=== PATIENT | male | born 1960 | race Caucasian/White ===

== ENCOUNTER 2024-02-15 08:36 | Outpatient (REF) | payer OTHER, SELFPAY ==
--- NOTE | ~2024-02-15 | XR_ITS ---
EXAMINATION: XR KNEE LEFT CLINICAL INFORMATION: Pain in left knee M25.562. COMPARISON: None available TECHNIQUE: Three views of the left knee. FINDINGS: No fracture or dislocation. There is moderate tricompartmental degenerative change with joint space narrowing and bulky osteophyte formation greatest in the medial compartment and patellofemoral compartment. No significant joint effusion. XR/XR knee LT 3V IMPRESSION: Moderate to severe tricompartmental degenerative change in the left knee. Electronically signed by: Yordan Chan MD 03/18/2024 09:59 AM AJITH
== END 2024-02-15 08:37 | disposition home or self-care (01) ==
LOC: HO.HOSX 08:36
PROVIDERS: Visit Provider Physician Assistant
DX: M25.562 Pain in left knee (principal); M25.561 Pain in right knee
CPT/HCPCS: 73560; 73562

== ENCOUNTER 2024-02-15 09:56 | Outpatient (AMB) | payer OTHER, SELFPAY ==
--- NOTE | 2024-02-15 10:03 | A.OFFVIS_ITS ---
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 Patient reports his pain presented about 9-10 years of after he had jumped on an inflation jumping pad. He was previously told that he would need surgery in the future. Currently he has constant mild pain with activity such as stair use and bending his knee. His pain is located at the anterior aspect of knee, stating below his knee cap. Denies numbness or tingling. He states his pain is very tolerable and does not need OTC pain reliever however he does use prior to hiking. 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 He states the pain has been present for about the last 10 years. He states about 10 years ago when he was juping onto an inflation pillow he lande on his feet. Shortly after he noticed he could not run, he felt pain in the left knee. He was after that, he would need surgery. States he cannot run at all due to that. He states he has more pain with down stairs. He denies instability. He states he is active, he hikes a lot in the summer. He states he does have to take Ibu. He does ride his mountain bike. 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 Mild tenderness along the medial joint line. ROM full with crepitus. Negative steinmans. Mild laxity with varus stress testing. NVI. Results Reviewed Results Reviewed: X-rays of the left knee obtained in the office today show significant degenerative arthritis with osteophyte formation. Assessment & Plan Assessment & Plan (1) Osteoarthritis of left knee: Code(s): M17.12 - Unilateral primary osteoarthritis, left knee Category: Medical Qualifiers: Osteoarthritis type: primary Qualified Code(s): M17.12 - Unilateral primary osteoarthritis, left knee (2) Varus deformity, not elsewhere classified, left knee: Code(s): M21.162 - Varus deformity, not elsewhere classified, left knee Category: Medical Plan We discussed options today which include steroid injections physical therapy and bracing. Is quite active and does not have significant limitations with daily activities therefore we will continue with a conservative approach. I did place an order for physical therapy and put an order in for a medial archives specialist brace. Like to get through the winter and see how he does and really evaluate how limited he is with activities. If he does get to a point where he is unable to participate in activities such as hiking, skiing or bike riding and is limited with walking long distances can contact our office to meet with Dr. Cardoza to discuss total knee arthroplasty. Orders: Orders XR knee LT 3V Today M25.562 - Pain in left knee XR knee RT 1V Today M25.561 - Pain in right knee PT Evaluation and Treatment Today M17.12 - Unilateral primary osteoarthritis, left knee Medications: New [Medial Auctioneer Tobacco Knee brace] n/a 1 ea 0RF M17.12 - Unilateral primary osteoarthritis, left knee, M21.162 - Varus deformity, not elsewhere classified, left knee [Medial Auctioneer Tobacco Knee brace] n/a 1 ea 0RF M17.12 - Unilateral primary osteoarthritis, left knee, M21.162 - Varus deformity, not elsewhere classified, left knee Coding Level of Care Code Est Pt Level 4 (71651) Complex EM visit Add On G2211 Diagnoses Primary osteoarthritis of left knee M17.12 Osteoarthritis type: primary Varus deformity, not elsewhere classified, left knee M21.162
[2024-02-15 10:10] VITALS: BMI 36.6
== END 2024-02-15 10:49 | disposition home or self-care (01) ==
PROVIDERS: PCP Registered Nurse; Visit Provider Physician Assistant
DX: M17.12 Unilateral primary osteoarthritis, left knee (principal); M21.162 Varus deformity, not elsewhere classified, left knee
CPT/HCPCS: 99214

== ENCOUNTER 2024-02-19 12:50 | Outpatient (REF) | payer OTHER, SELFPAY ==
--- NOTE | 2024-02-19 16:39 | MHC.AU.HA1 ---
Hearing Aid Evaluation Date of Visit: 02/19/24 Historical Information: Description of Hearing: Borderline normal gradually sloping to moderately severe sensorineural hearing loss, bilateral. Current personal amplification information, if applicable: None. Summary: Amplification recommended to facilitate improved communication. Reviewed options, performance levels, costs. Recommended RITE style. Selected rechargeable option. Selected Ultra performance level. Pt. is not concerned about phone connectivity. [employer] employee. Hearing Aid Prescription: Based on the individual?s shared listening needs, communication environments, dexterity, desire for connectivity, and personal preferences, the following prescription for amplification has been made: Right ear: Make, Model, Color: Oticon Intent 1 R steel diez Battery Size: Rechargeable Store Clerk Cashier/Slim Tube: 2/85 Type of Earmold/Dome/CShell/SlimTip: 8mm dbl braswell Left ear: Make, Model, Color: Oticon Intent 1 R steel diez Battery Size: Rechargeable Store Clerk Cashier/Slim Tube: 2/85 Type of Earmold/Dome/CShell/SlimTip: 8mm dbl braswell Plan of Care: Patient wishes to purchase hearing aids as prescribed Action Taken/Action Needed: Medical Clearance to be requested from PCP/ENT Hearing Instrument Fitting to be scheduled when materials arrive Primary Diagnosis: H90.3 Bilateral Sensorineural Hearing Loss Signature: Provider: Renaldo Arnold, [facility]
== END 2024-02-19 12:51 | disposition home or self-care (01) ==
LOC: HO.SH 12:50
PROVIDERS: Visit Provider Nurse Practitioner Family
DX: Z01.118 Encounter for examination of ears and hearing with other abnormal findings (principal); H90.3 Sensorineural hearing loss, bilateral
CPT/HCPCS: 92557; 92567

== ENCOUNTER 2024-04-04 10:31 | Outpatient (REF) | payer SELFPAY ==
--- NOTE | ~2024-04-04 | XR_ITS ---
EXAMINATION: XR HAND 3 OR MORE VIEWS RIGHT HISTORY: M79.641 - Pain in right hand COMPARISON: There are no prior studies available for comparison. FINDINGS: Three views of the right hand are submitted. Osseous mineralization is normal. There is no fracture or dislocation. There is moderate osteoarthritis of the 1st carpometacarpal joint, with joint space narrowing. There is mild joint space narrowing involving the DIP joints. The soft tissues are unremarkable. XR/XR hand RT min 3V IMPRESSION: Osteoarthritis of the right hand as described. Electronically signed by: Yordan Blandon MD 04/08/2024 09:43 AM EST
--- OUTSIDE RECORDS SUMMARY | 2024-04-04 10:46 | XMS_ITS ---
Author Organization [facility] Address [address] [place] [address] Care Team Providers Care Memory Care Director Name Role Phone LIZETTE WEST Primary Care Provider Unavail able Yordan Jimenez Unavailable [phone] REASON FOR VISIT patient not calling me back Encounters Encounter Location Date Provider Diagnosis [facility] [address] [place] [address] [address] [place] [address] 11/01/2023 Yordan Jimenez PLAN OF TREATMENT Next Appt Details Provider Name:Yordan Jimenez , 04/22/2024 11:10:00 AM, [address] [place] [address], [address], [place], [address],
--- OUTSIDE RECORDS SUMMARY | 2024-04-04 10:46 | XMS_ITS | Patient Health Record ---
Author Organization [facility] Address [address] [place] [address] Care Team Providers Care Metal Sheet Roller Operator Name Role Phone BETTYKENYETTA LIZETTE Primary Care Provider Unavail able Yordan Jimenez Unavailable [phone] REASON FOR REFERRAL No Information SOCIAL HISTORY Sex Assigned At : Social History Observation Description Sex Assigned At Unknown Encounters Encounter Location Date Provider Diagnosis [facility] [address] [place] [address] 11/01/2023 Yordan Jimenez PLAN OF TREATMENT Next Appt Details Provider Name:Yordan Jimenez , 04/22/2024 11:10:00 AM, [address] [place] [address], [address], [place], [address], Insurance Providers Payer Name Payer Address Payer Phone Subscriber Number Group Number Insured Name Patient Relationship to Insured Coverage Start Date Coverage End Date [employer] [address] [address] [place] [address] [id number] FRANCIS MONTERO Self - patient is the insured
== END 2024-04-04 10:32 | disposition home or self-care (01) ==
LOC: HO.HOSX 10:31
DX: M79.641 Pain in right hand (principal); M65.331 Trigger finger, right middle finger; Z86.14 Personal history of Methicillin resistant Staphylococcus aureus infection
CPT/HCPCS: 20550; 73130; J1100; J2003

== ENCOUNTER 2024-04-04 13:52 | Outpatient (AMB) | payer OTHER, SELFPAY ==
[2024-04-04 13:59] VITALS: BMI 36.6
--- NOTE | 2024-04-04 13:59 | A.OFFVIS_ITS ---
Vital Signs 04/04/24 13:59 Height 6 ft Weight 270 lb BMI 36.6 Intake Visit Reasons: new prob - Right hand pain Intake Note: Jesus 63 yr old right hand dominant male presents today for a new patient visit for her right hand pain. States approx around 2023 his cat scratch him. 1 month later his finger felt weird and felt as if he has a mass around his finger. Seen at urgent care where he was RX ABX. States it helped somewhat however he is still experiencing pain. States at times it locks and has radiating pain from his DIP to MCP and into his palm. He is not able to make a full close fist. Denies numbness or tingling in the right upper extremity. No other acute complaints or concerns at this time. Allergies amoxicillin [From Augmentin] Allergy (Severe, Unverified 04/04/24 14:13) ANAPHYLAXIS Penicillins Allergy (Verified 04/04/24 14:13) Unknown From Augmentin Allergy (Severe, Uncoded 04/04/24 14:13) ANAPHYLAXIS HPI HPI new prob - Right hand pain: Details: Jesus 63 yr old left hand dominant female presents today for a new patient visit for her right hand pain. States approx around 2023 his cat scratch him. 1 month later his finger felt weird and felt as if he has a mass around his finger. Seen at urgent care where he was RX ABX. States it helped somewhat however he is still experiencing pain. States at times it locks and has radiating pain from his DIP to MCP and into his palm. He is not able to make a full close fist. Hx of MRSA. 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 Neuro: Normal sensation of the tips of all digits of the right hand at this time Vascular: Cap refill brisk Pain: Tenderness to palpation at the level of the A1 niecy of the right middle finger Pain associated with visible and palpable locking and catching ROM: There is a visible and palpable locking and catching of the right middle finger went in a flexed position Patient is able to flex and extend all other digits of the right hand fully and without difficulty Skin: No lacerations or abrasions. General: No ecchymosis, erythema, or evidence of infection. Psych: Appears grossly normal Affect normal Attitude cooperative Assessment & Plan Assessment & Plan (1) Trigger finger, right middle finger: Code(s): M65.331 - Trigger finger, right middle finger Category: Medical Plan 1. Trigger finger, right middle finger Patient is educated about this condition Patient is educated about the treatment options available Patient would like to proceed with steroid injection The risks and benefits of a steroid injection including but not limited to risk of damage to blood vessels, nerves, tendons, infection, skin bleaching, failure to improve symptoms, increased pain, and possible need for further injections or other intervention were discussed with the patient and the patient wishes to proceed with the steroid injection. Once consent was obtained, I sterilely prepped the area over the A1 niecy of the flexor tendon sheath of the right middle finger. I then injected the flexor tendon sheath with a combination of 1 mL of dexamethasone (4mg/ml), and 1% lidocaine. The patient tolerated the procedure well with no complications. If the patient continues to have locking and catching 4-6 weeks following this injection, they may call to schedule appointment to discuss alternative treatment options Follow-up prn Orders: Orders XR hand RT min 3V 04/04/24 M79.641 - Pain in right hand Coding Level of Care Code New Pt Level 3 (73394) Diagnoses Trigger finger, right middle finger M65.331
== END 2024-04-04 14:33 | disposition home or self-care (01) ==
PROVIDERS: PCP Registered Nurse
DX: M65.331 Trigger finger, right middle finger (principal)
CPT/HCPCS: 99203

== ENCOUNTER 2024-05-30 11:45 | Day surgery (SDC) | payer OTHER, SELFPAY ==
--- OUTSIDE RECORDS SUMMARY | 2024-05-26 13:35 | XMS_ITS | Encounter Summary ---
Author Organization [facility] Address [phone] [place] [address] Care Team Providers Care Cadastral Engineer Name Role Phone Francisca Murray [place]i [facility] Primary Care Provid er Reason for Visit * Reason Comments Medication Refill Encounter Details Date Type Department Care Team (Late st Contact Info) Description 05/08/2024 Refill [facility] [address] [place] [address] [place] [phone] Nieves Larsen, [employer]TON [employer] [place] [address] [email or web address] Medication Refill Social History Tobacco Use Types Packs/Day Years Used Date Smoking Tobacco: Former Cigarettes 2 13 0 06/01/1975 - 05/31/1988 Smokeless Tobacco: Never Alcohol Use Standard Drinks/Week Comments No 0 (1 standard drink = 0.6 oz pur e alcohol) Child or Family Care Answer Date Record ed Do you have problems with on e of the following making it difficult for you to work, study, or receive health care? No 04/21/2024 Education Answer Date Recorded Are you interested in help w ith more adult education (for example, completing high school, GED, job training, learning the Maltese language, technical skills, or developing parenting skills)? No 04/21/2024 Are you concerned about learning? Not on file 04/21/2024 No 04/21/2024 Yes 04/21/2024 Food Answer Date Recorded Within the past 6 months we worried whether our food would run out before we got money to buy more. Never True 04/21/2024 Within the past 6 months the food we bought just didn't last and we didn't have enough money to get more. Never True Residential Stability Answer Date Recor ded What is your housing situation today? I have viktor muñiz 04/21/2024 How many times have you move d in the past 12 months? Zero (I did not move) 04/21/2024 Paying for Meds Answer Date Recorded Do you have trouble paying for medicines? No 04/21/2024 Paying Utility Bills Answer Date Record ed Do you have trouble paying your heating or elect ricity bill? No 04/21/2024 Transportation Answer Date Recorded Has the lack of transportati on kept you from medical appointments or from getting medications? No 04/21/2024 Unemployment Answer Date Recorded Are you currently unemployed or working on a part-time or temporary basis, and looking for work? No 09/28/2020 Digital Access Answer Date Recorded No 04/21/2024 Yes 04/21/2024 Do you have reliable internet access at home? Ye s 04/21/2024 Do you have a device (e.g., phone, tablet, computer) with a working camera? Yes 04/21/2024 Intimate Partner Violence Answer Date R ecorded Denied Basic Needs Not on file 04/21/2024 In the past 12 months have y ou been in a relationship with a person who hurts, threatens, or tries to control you? No 04/21/2024 Worried food would run out Not on file 04/21 In the past 12 months have y ou been in a relationship with a person who hurts, threatens, or tries to control you? No 04/21/2024 Sex and Gender Information Value Date Recorded Sex Assigned at Male 08/22/2019 11:44 AM EDT Gender Identity Male 08/22/2019 11:44 AM EDT Sexual Orientation Straight 08/22/2019 11 :44 AM EDT documented as of this encounter Progress Notes * Jaclyn Valdovinos MA - 05/08/2024 7:55 AM EST Rx Care Gap Status - Instructions for Clinical Staff (prescriber discretion applies): > No future appt: Please schedule if appropriate. Visit Info Last visit: 04/21/2024 Francisca Murray CNP - Family Medicine [facility] > Requested f/u: Return in about 6 months (around 10/19/2024) for Next scheduled follow up. Upcoming visit: None ACTIONS TAKEN BY Jaclyn Valdovinos MA - Refill protocol passed: no action needed. ACEi / ARBs / Diuretic Rx Protocol (on HTN Registry) Criteria met; renew for up to 12 months. - valsartan Visit in the past 14 months: Yes Clinical criteria: - BP within last 6 months: 134/82 on 04/21/2024 - BMP within past year: Yes - Cr, GFR and K are normal: Yes Diabetes Rx Protocol (NOT on Diabetes Registry; rx may be prescribed for other indications) - metformin HCl Criteria met; renew for up to 12 months.Rx not checked for diabetes monitoring parameters Visit in the past 14 months: Yes Clinical criteria: - BMP within past year: Yes Lab Results Component Value Date SODIUM 141 04/17/2024 POTASSIUM 4.1 04/17/2024 CHLORIDE 105 04/17/2024 CO2 25 04/17/2024 BUN 15 04/17/2024 CREATININE 1.20 04/17/2024 EGFR 68 04/17/2024 Lab Results Component Value Date HEMOGLOBIN A1C 5.5 02/28/2023 Hemoglobin A1c 5.4 06/03/2018 MICROALB/CRE RATIO 12.2 04/17/2024 URINE MICROALBUMIN 3.0 (H) 04/17/2024 Lab Results Component Value Date LDL 170 (H) 04/17/2024 HDL 30 04/17/2024 CARDIAC RISK RATIO 7.7 (H) 04/17/2024 TRIGLYCERIDES 154 04/17/2024 CHOLESTEROL 231 04/17/2024 documented in this encounter Plan of Treatment Not on file documented as of this encounter Visit Diagnoses Diagnosis Hypertension Unspecified essential hypertension Prediabetes Other abnormal glucose documented in this encounter Additional Health Concerns Assessment Noted Time PHQ-2 Depression Total Score: 0 01/27/20 25 10:37 AM EST documented as of this encounter Care Teams Cadastral Engineer Relationship Specialty Start Date End Date Rljoegiuliana Francisca Rubi, CINDY [address] [place] [address], [address] [place] [phone] [email or web address] PCP - General Family Medicine 10/15/23 documented as of this encounter Additional Source Comments The information contained in this document represents components of the legal health record. It is not the complete legal health record.[facility]
--- OUTSIDE RECORDS SUMMARY | 2024-05-26 13:35 | XMS_ITS | Patient Health Record ---
Author Organization [employer] [facility] [employer] [facility] Address [address] [place] [address] Care Team Providers Care Identifier Horse Name Role Phone Nieves Larsen NP Primary Care Provider Louise Henderson Unavailable [phone] Allergies Allergen (clinical drug ingredient) Drug/Non Drug Allergy documented on EMR Reaction Allergy Type Onset Date Status amoxicillin Amoxicillin hives Drug Allergy Act salina amoxicillin / clavulanate Augmentin hives Drug Allergy Active sulfamethoxazole / trimethoprim Bactrim hives Drug Allergy Active Penicillin hives Drug Allergy Active Reason For Referral No Information Medications Medication SIG (Take, Route, Frequency, Duration) Notes Start Date End Date Status Multivitamin Active Clindamycin HCl 300 MG 1 capsule Orally every 6 hrs for 10 day(s) 06/14/2018 Not-Taking Vitamin C Active metFORMIN HCl ER (OSM) 1000 MG 1 tablet with evening meal Orally Once a day for 30 day(s) Active Clindamycin HCl 300 MG 1 capsule Orally every 6 hrs for 10 day(s) 08/14/2018 Not-Taking Luttrell DHA Active Clindamycin HCl 300 MG 1 capsule Orally every 6 hrs for 10 day(s) 07/29/2018 Not-Taking Losartan Potassium 25 MG 1 tablet Orally Once a day Active Lexapro 20 MG 1 tablet Orally Once a day Not-Taking Aspirin 81 MG 1 tablet Orally Once a day for 30 day(s) Active Walking Boot/Pneumatic As directed Wear Daily for Until further notice 07/04/2018 Not-Taking ZyrTEC Allergy Not-T aking levoFLOXacin Not-Adi ing Vitamin E Active Doxycycline 100MG 1 capsule orally 2 times a day Not-Taking Escitalopram Oxalate 20 MG 1 tablet Oral ly Once a day for 30 day(s) Active Doxycycline Hyclate 100 MG 1 tablet Oral ly Twice a day for 10 day(s) 12/12/2018 Not-Taking Melatonin 3 MG 1 tablet at bedtime as needed with food Orally Once a day for 30 day(s) Active Clindamycin HCl 300 MG 1 capsule Orally every 6 hrs for 10 days 09/17/2018 Not-Taking Cetirizine HCl 10 MG 1 tablet Orally Once a day for 30 day(s) Active Work Note . . Pt can return to work on 08/14/18, limited standing and walking 08/13/2018 Not-Taking hydroCHLOROthiazide 12.5 MG 1 tablet Ora lly Once a day for 30 day(s) Not-Taking EPINEPHrine 0.3 MG/0.3ML as directed Injection prn Active Doxycycline Monohydrate 100 MG 1 capsule Orally Twice a day for 7 days 10/27/2022 Not-Taking Immunizations Vaccine Route Administration Date Status Comme nts COVID-19 Pfizer BioNTech Vaccine Unknown 04/19/2020 Administered Second Dose:05/10/2020 Influenza Unknown 01/21/2018 Administered Influenza Unknown 01/26/2020 Administered Social History Tobacco Use: Social History Observation Description Date Details (start date - stop date) Former Smoker NA - NA Tobacco Use/Smoking Question Answer Notes Are you a: former smoker Additional Findings: Tobacco User Heavy cigarett e smoker (20-39 cigs/day) Additional Findings: Tobacco Non-User Current no n-smoker Alcohol Screen Question Answer Notes Did you have a drink containing alcohol in the p ast year? No Points 0 Interpretation Negative Tobacco use other than smoking: Question Answer Notes Are you an other tobacco user? 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) Active confirmed Problem 438277239 Osteomyelitis of toe of right foot (M86.9) Active confirmed Problem 131585647 Non-pressure ulc er of right lower extremity with fat layer exposed (L97.912) Active confirmed Problem 444805374 Non-pressure chronic ulcer of right lower leg, limited to breakdown of skin (L97.911) Active confirmed Plan Of Treatment Pending Test Test Name Order Date MRI : Foot, right 06/20/2018 X ray : Foot, right 2V 04/18/2012 X ray : Foot, right 2V 07/24/2013 X ray : Foot, left 3V 06/05/2018 X ray : Foot, left 3V 12/17/2018 X ray : Foot, right 3V 01/21/2019 X ray : Foot, right 3V 07/29/2018 X ray : Foot, right 3V 12/17/2018 X ray : Foot, right 3V 06/05/2018 X ray : Foot, right 3V 06/19/2013 Insurance Providers Payer Name Payer Address Payer Phone Subscriber Number Group Number Insured Name Patient Relationship to Insured Coverage Start Date Coverage End Date [employer] Benefits [address] [address] [place] [address] [id number] Jesus Aguilar Self - patient is the insured Medical (General) History Medical History History ICD Code chicken pox MRSA Cellulitis Hypertension ulcer Measles Mumps Tuberculosis Surgical History Surgery Date(Month/Year) ear surgery 1971 spermatocele 2003 Bone Bx R3 toe, HT repair 3rd R, Debri jarred of ulcer R3rd 07/25/2018 LOCAL HT repair 2nd & 4th R, HT flexture contracture 3rd L 12/12/2018
--- OUTSIDE RECORDS SUMMARY | 2024-05-26 13:36 | XMS_ITS | Patient Health Record ---
Author Organization [facility] Address [address] [place] [address] Care Team Providers Care Artist Model Name Role Phone BRETT LIZETTE Primary Care Provider Unavail able Yordan Jimenez Unavailable [phone] ALLERGIES Allergen (clinical drug ingredient) Drug/Non Drug Allergy documented on EMR Reaction Allergy Type Onset Date Status Penicillin Unknown Drug Allergy Active amoxicillin Amoxicillin Unknown Drug Allergy Act salina amoxicillin / clavulanate Augmentin Unknown Drug Allergy Active REASON FOR REFERRAL No Information MEDICATIONS Medication SIG (Take, Route, Frequency, Duration) Notes Start Date End Date Status EPINEPHrine 0.3 MG/0.3ML INJECT 1 PEN INTRAMUSCULARLY ONCE NEEDED FOR ANAPHYLAXIS Injection for 1 Active ZyrTEC Allergy 10 MG 1 tablet Orally Onc e a day for 30 day(s) Active Rosuvastatin Calcium 10 MG Oral for 90 Active Aspirin 81 81 MG 1 tablet Orally Once a day for 30 day(s) Active Multivitamin & Mineral Active Valsartan 160 MG Oral for 90 A ctive Mupirocin 2 % External for 10 Active Escitalopram Oxalate 20 MG TAKE 1 TABLET BY MOUTH EVERY DAY Oral for 90 Active metFORMIN HCl 1000 MG TAKE 1 TABLET BY M OUTH EVERY DAY Oral for 90 Active SOCIAL HISTORY Tobacco Use: Social History Observation Description Date Details (start date - stop date) Never Smoker NA - NA Sex Assigned At : Social History Observation Description Sex Assigned At Unknown Tobacco Use/Smoking Question Answer Notes Patient is a nonsmoker Alcohol Screen Question Answer Notes Did you have a drink containing alcohol in the p ast year? No Points 0 Interpretation Negative PROBLEMS Problem Type ICD Code Onset Dates Problem Status W/U Status Risk SNOMED Code Notes Problem Colon cancer screening (Z12.11) Active confirmed Colon cancer screening (333314087) Problem Encounter for other preprocedural examination (Z01.818) Active confirmed Pre-procedure evaluation check (022429176) VITAL SIGNS Blood pressure diastolic 00 mm Hg 04/22/2024 Height 6 ft 1 in in 04/22/2024 Blood pressure systolic 00 mm Hg 04/22/2024 Weight 285 lbs 04/22/2024 BMI 37.60 kg/m2 04/22/2024 Encounters Encounter Location Date Provider Diagnosis [facility] [address] [place] [address] 04/22/2024 Yordan Jimenez Colon cancer screeni ng Z12.11 and Encounter for other preprocedural examination Z01.818 [facility] [address] [place] [phone] 11/01/2023 Yordan Jimenez ASSESSMENTS Encounter Date Diagnosis Assessment Notes Treatment Notes Treatment Clinical Notes 04/22/2024 Colon cancer screening (ICD-10 - Z12.11) Stop aspirin for 1 week before the colonoscopy Do not take the Metformin the night before or on the morning of the colonoscopy 04/22/2024 Encounter for other preprocedural examination (ICD-10 - Z01.818) PLAN OF TREATMENT Future Test Test Name Order Date COLONOSCOPY 04/22/2024 Next Appt Details Provider Name:Yordan Jimenez , 05/30/2024 02:30:00 PM, [address] [place] [address] , [place], [place], [phone], Insurance Providers Payer Name Payer Address Payer Phone Subscriber Number Group Number Insured Name Patient Relationship to Insured Coverage Start Date Coverage End Date [employer] [place] [address] [address] [place] [address] [id number] FRANCIS MONTERO Self - patient is the insured MEDICAL (GENERAL) HISTORY Medical History History ICD Code Hypertension Negative colonoscopy at age 50ish for gemma larios NIDDM Anxiety Hyperlipidemia Denies GA,CVA,Lung disease,renal disease Surgical History Surgery Date(Month/Year) Hammer toes Tonsils
--- OUTSIDE RECORDS SUMMARY | 2024-05-26 13:36 | XMS_ITS ---
Author Organization [facility] Address [address] [facility] [address] [place] [phone] Care Team Providers Care [employer] Name Role Phone LIZETTE WEST Primary Care Provider Unavail able Yordan Jimenez Unavailable [phone] REASON FOR VISIT patient not calling me back Encounters Encounter Location Date Provider Diagnosis [facility] [address] [facility] [address] [place] [phone] 11/01/2023 Yordan Jimenez PLAN OF TREATMENT Next Appt Details Provider Name:Yordan Jimenez , 05/30/2024 02:30:00 PM, [address] [place] [address] , [place], [place], [phone],
--- OUTSIDE RECORDS SUMMARY | 2024-05-26 13:36 | XMS_ITS ---
Author Organization [facility] Address [address] [place] [address] Care Team Providers Care Cognos Analyst Name Role Phone LIZETTE WEST Primary Care Provider Unavail able Yordan Jimenez Unavailable [phone] ALLERGIES Allergen (clinical drug ingredient) Drug/Non Drug Allergy documented on EMR Reaction Allergy Type Onset Date Status Penicillin Unknown Drug Allergy Active amoxicillin Amoxicillin Unknown Drug Allergy Act salina amoxicillin / clavulanate Augmentin Unknown Drug Allergy Active REASON FOR VISIT colon screening MEDICATIONS Medication SIG (Take, Route, Frequency, Duration) Notes Start Date End Date Status EPINEPHrine 0.3 MG/0.3ML INJECT 1 PEN INTRAMUSCULARLY ONCE NEEDED FOR ANAPHYLAXIS Injection for 1 Active Valsartan 160 MG Oral for 90 A ctive Mupirocin 2 % External for 10 Active Escitalopram Oxalate 20 MG TAKE 1 TABLET BY MOUTH EVERY DAY Oral for 90 Active metFORMIN HCl 1000 MG TAKE 1 TABLET BY M OUTH EVERY DAY Oral for 90 Active ZyrTEC Allergy 10 MG 1 tablet Orally Onc e a day for 30 day(s) Active Rosuvastatin Calcium 10 MG Oral for 90 Active Aspirin 81 81 MG 1 tablet Orally Once a day for 30 day(s) Active Multivitamin & Mineral Active SOCIAL HISTORY Tobacco Use: Social History [...] screening (Z12.11) Active confirmed Colon cancer screening (552738558) Problem Encounter for other preprocedural examination (Z01.818) Active confirmed Pre-procedure evaluation check (478305548) VITAL SIGNS Blood pressure systolic 00 mm Hg 04/22/19 25 Blood pressure diastolic 00 mm Hg 025 Height 6 ft 1 in in 04/22/2024 Weight 285 lbs 04/22/2024 BMI 37.60 kg/m2 04/22/2024 Encounters Encounter Location Date Provider Diagnosis [facility] [address] [place] [address] 04/22/2024 Yordan Jimenez Colon cancer screeni ng Z12.11 and Encounter for other preprocedural examination Z01.818 ASSESSMENTS Encounter Date Diagnosis Assessment Notes Treatment Notes Treatment Clinical Notes 04/22/2024 Colon cancer screening (ICD-10 - Z12.11) Stop aspirin for 1 week before the colonoscopy Do not take the Metformin the night before or on the morning of the colonoscopy 04/22/2024 Encounter for other preprocedural examination (ICD-10 - Z01.818) PLAN OF TREATMENT Treatment Notes Assessment Notes Colon cancer screening Stop aspirin for 1 week before the colonoscopy Do not take the Metformin the night before or on the morning of the colonoscopy Future Test Test Name Order Date COLONOSCOPY 04/22/2024 Next Appt Details Follow Up: prn, Reason: Provider Name:Yordan Jimenez , 05/30/2024 02:30:00 PM, [address] [place] [address], [phone], Progress Notes * Examination Category Sub-Category Detail Notes General Examination GENERAL APPEARANCE: pleasant , well nourished, well developed, in no acute distress HEAD: EYES: sclera non-icteric EARS: NOSE: THROAT: NECK/THYROID: no cervical lymphade nopathy, neck supple HEART: S1, S2 normal CHEST: LUNGS: clear to auscultatio n bilaterally ABDOMEN: normal bowel sounds, no guarding or rigidity, no guarding or rigidity, no masses palpable, soft, nontender, nondistended NEUROLOGIC: alert and oriented SKIN: nonjaundiced, no spi anai angiomata EXTREMITIES: no edema PERIPHERAL PULSES: BACK: BREASTS: MUSCULOSKELETAL: MALE GENITOURINARY: LYMPH NODES: RECTAL EXAM: FEMALE GENITOURINARY: ORAL CAVITY: mucosa moist
--- OUTSIDE RECORDS SUMMARY | 2024-05-26 13:36 | XMS_ITS ---
Author Organization [facility] Address [address] [place] [address] Care Team Providers Care Manager Registration Name Role Phone Nieves Larsen NP Primary Care Provider Louise Henderson [phone] REASON FOR VISIT Doxy RX Encounters Encounter Location Date Provider Diagnosis [facility] [address] [place] [address] 12/25/2022 Louise Swanson Plan Of Treatment No Information Progress Notes * Jesus AGUILAR EDOB: (62 yo M)Acc No.[id number]:12/25/2022 Patient:?Jesus Aguilar :1960???Age:62 Y???Sex:Male Address:[address] [place] [address] * true * Date:? Generated for Printi ng/Faneymarg/eTransmitting on:?05/26/2024 01:36 PM EST
--- OUTSIDE RECORDS SUMMARY | 2024-05-26 13:36 | XMS_ITS | Clinical Summary ---
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 Active melatonin 3 mg Tab Take 3 mg by mouth. Active aspirin 81 MG EC tablet Take 81 mg by mouth daily. Active therapeutic multivitamin tablet Take 1 tablet by mouth daily. Active omega 4-mao-gar-fish oil 1,000 mg (120 mg-180 mg) Cap Take 1 capsule by mouth daily. Active FLAXSEED ORAL Take by mouth daily. Active ascorbic acid (VITAMIN C ORAL) Take by mouth daily. Active vitamin E acetate (VITAMIN E ORAL) Take by mouth daily. Active glucos sul 2KCl/msm/chond/C/Mn (GLUCOSAMINE CHONDROITIN ORAL) Take by mouth. Act salina DM/p-ephed/acetamin oph/doxylam (NYQUIL D ORAL) Take by mouth. Active escitalopram oxalate (LEXAPRO) 20 MG tabletIndications:D epression, unspecified depression type Take 1 tablet (20 mg total) by mouth daily. 90 tablet 3 4 Active EPINEPHrine 0.3 mg/0.3 mL auto-injector INJECT 0.3 ML (0.3 MG TOTAL) INTRAMUSCULARLY ONCE NEEDED FOR ANAPHYLAXIS 1 each 4 Active rosuvastatin (CRESTOR) 10 MG tabletIndications:M ixed hyperlipidemia Take 1 tablet (10 mg total) by mouth nightly at bedtime. 30 tablet 2 5 Active valsartan (DIOVAN) 160 MG tabletIndications:H ypertension TAKE 1 TABLET BY MOUTH EVERY DAY 90 tablet 3 5 Active metFORMIN (GLUCOPHAGE) 1000 MG tabletIndications:P rediabetes TAKE 1 TABLET BY MOUTH EVERY DAY 90 tablet 3 5 Active metFORMIN (GLUCOPHAGE) 1000 MG tabletIndications:P rediabetes Take 1 tablet (1,000 mg total) by mouth daily. 90 tablet 3 4 05/08/19 Discontinu ed(Reorder ) valsartan (DIOVAN) 160 MG tabletIndications:H ypertension Take 1 tablet (160 mg total) by mouth daily. 90 tablet 3 4 05/08/19 Discontinu ed(Reorder ) Active Problems Problem Noted Date Diagnosed Date Primary osteoarthritis of left knee 04/21/2024 Assessment & Plan (04/22/2024 8:48 AM EST): The patient's knee arthritis is likely a result of age-related wear and tear, exacerbated by his weight. He was informed that weight loss could potentially alleviate his symptoms, although it would not reverse the existing damage. He is considering knee joint replacement and has seen orthopedics regarding this issue. Continues on a glucosamine supplement. OTC oral or topical NSAIDs were suggested as needed for discomfort. He also could consider working with physical therapy regarding good body mechanics and good muscle strength surrounding the joint/joint stability. Trigger finger, right middle finger 04/04/2024 Assessment & Plan (04/22/2024 8:42 AM EST): Right middle finger trigger finger s/p steroid injection w/ [facility] 04/04/24, visit note reviewed. Range of motion and pain has improved, able to better form a fist. Denies any continued locking or catching. He will follow-up with orthopedics as needed. History of drug-induced anaphylaxis 10/15/2023 Assessment & Plan (10/15/2023 3:46 PM EDT): Severe penicillin allergy resulting in anaphylactic reaction. Carries an EpiPen but has not had to use. Has had two episodes once to Augmentin and another to penicillin. Allergic urticaria 10/15/2023 Assessment & Plan (10/15/2023 3:48 PM EDT): Environmental or seasonal allergies with associated hives and rare lip swelling. Continues on Zyrtec daily with good effect. Class 2 obesity with body ma ss index (BMI) of 39.0 to 39.9 in adult 10/15/2023 Assessment & Plan (04/22/2024 8:51 AM EST): He has regained most of the weight he lost last year with cutting out sweets. Current BMI 39.17. Weight loss may alleviate some of his knee pain d/t osteoarthritis. Medications for weight loss were discussed including GLP-1 agonists; he was encouraged to verify his insurance coverage for these medications as they are otherwise likely to be cost prohibitive. The potential side effects of these medications, including gastrointestinal issues such as heartburn, nausea, bloating, constipation, and gas, were discussed. He prefers to avoid medications for now. Assessment & Plan (10/15/2023 3:50 PM EDT): Lost 20lbs over the winter by cutting out added sugar/sweets. Weight recently stable w/ BMI 37.88, although reports less than ideal food choices while on vacation recently. Continue efforts re: healthy, balanced diet and active lifestyle. Urgency of urination 10/15/2023 Assessment & Plan (10/17/2023 1:39 PM EDT): Reported urinary urgency over the past couple of months. No changes in stream, no problems starting or stopping, no dribbling, no pain, and no blood in urine. A urine test will be conducted to rule out any infections or stones. If microscopic hematuria is present, an ultrasound will be ordered to rule out any stones or mechanical issues with the bladder. PSA levels were within the normal range as of last year, this will be repeated per his preference. CKD (chronic kidney disease) stage 2, GFR 60-89 ml/min 10/15/2023 Assessment & Plan (04/22/2024 8:56 AM EST): Stable CKD2 w/ Cr 1.2 and GFR 68. MCR neg for proteinuria. Emphasized the importance of good BP and blood sugar control. Renally dose medications and avoid frequent use of NSAIDs. Assessment & Plan (10/17/2023 1:39 PM EDT): Kidney function, although slightly decreased compared to previous readings, remains within normal limits. Blood work will be ordered to monitor kidney function. MCR also ordered to evaluate for proteinuria. Continue valsartan as it is protective for kidney health. Avoid regular use of NSAIDs. Subclinical hypothyroidism 10/15/2023 Assessment & Plan (04/22/2024 8:54 AM EST): His TSH levels are slightly elevated, indicating subclinical hypothyroidism. However, his thyroid hormone levels remain within the normal range, suggesting that his thyroid is not underactive. He was advised to report any symptoms such as fatigue, weight gain, cold intolerance, dry skin, or hair breakage. If these symptoms occur, starting levothyroxine may be considered. Assessment & Plan (10/17/2023 1:36 PM EDT): Consistently high TSH levels over the past 5 years, indicating an underactive thyroid. Thyroid function will be monitored, and a test for antibodies will be included in the blood work to evaluate for Lino's. If t4 levels become low or he develops symptoms, medication may be considered. 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 Never treated. No recent problems with cough or shortness of breath. Advised to seek medical attention if a chronic cough, bloody cough, or night sweats develop. Should have a low clinical threshold for completing a screening chest x-ray. Peripheral neuropathy 10/22/2018 Hypertension 06/19/2018 Assessment & Plan (04/22/2024 8:55 AM EST): Stable, BP at goal <140/90. Continues on valsartan for blood pressure management, tolerating well without dizziness or cough. Continue low-salt diet and regular exercise. Assessment & Plan (10/17/2023 1:31 PM EDT): Blood pressure readings are within the normal range today. Continue valsartan for blood pressure management. Recurrent major depressive disorder 06/19/2018 Assessment & Plan (04/22/2024 8:57 AM EST): Stable, sx largely in remission per screening, although does endorse a higher level of stress recently. Continues on escitalopram with benefit. Emphasized the importance of cognitive skills and encouraged pt to re-connect with a therapist. Discussed that the best outcomes, with lowest chance of remission occurs with a combination of medication, counseling and good self-care: healthy eating, adequate sleep, avoiding negative psychoactive substances [like alcohol, caffeine] and regular exercise. Assessment & Plan (10/17/2023 1:35 PM EDT): Stable, sx largely in remission per screening. Continues on escitalopram with benefit. Mixed hyperlipidemia 06/19/2018 Assessment & Plan (04/22/2024 8:53 AM EST): Cholesterol levels were high during the last check, with LDL levels above goal <100. 10-yr ASCVD risk calculated at nearly 21%. Current cholesterol treatment guidelines recommend consideration of a statin medication for anyone with a 10 year risk above 7.5%. Reviewed risks and benefits of statin medications, agrees to initiate rosuvastatin. A prescription for rosuvastatin 10mg to be taken in the evening was provided. He was advised to report any side effects, such as myalgia or fatigue. Laboratory tests will be conducted in 8 weeks to monitor his cholesterol and liver function. Assessment & Plan (10/17/2023 1:33 PM EDT): Cholesterol levels were high during the last check, with LDL levels above goal <100. 10-yr ASCVD risk calculated at 17.8%. Current cholesterol treatment guidelines recommend consideration of a statin medication for anyone with a 10 year risk above 7.5%. Reviewed risks and benefits of statin medications. Declines presently, reasonable to re-check lipids prior to medication initiation. HDL levels have been consistently low, likely due to genetic factors. Triglyceride levels have shown improvement. Continue current regimen including omega-3 supplements. Prediabetes 05/31/2018 Assessment & Plan (04/22/2024 8:51 AM EST): His blood glucose levels have been consistently elevated, with a recent reading of 104, although not reaching the diabetic threshold of 125. Continues on metformin 1000mg daily for blood sugar control. He was advised to monitor his intake of sweets and simple carbohydrates, which can rapidly increase blood glucose levels. Assessment & Plan (10/17/2023 1:34 PM EDT): Blood glucose levels have been well-managed with metformin. Continue metformin for blood sugar control. Resolved Problems Problem Noted Date Diagnosed Date Resolved Date Cellulitis of toe of right foot 05/31/2018 10/15/2023 Cellulitis and abscess of foot 10/15/2023 Other osteonecrosis, right toe(s) 10/15/2023 Overview (07/29/2018): excised 07/2018 Dr. 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 Encounter for health maintenance examination in adult (Primary Dx); Encounter for screening for depression; Need for prophylactic vaccination against Streptococcus pneumoniae (pneumococcus); Primary osteoarthritis of left knee; Mixed hyperlipidemia; Subclinical hypothyroidism; Prediabetes; Primary hypertension; Trigger finger, right middle finger; Class 2 severe obesity due to excess calories with serious comorbidity and body mass index (BMI) of 39.0 to 39.9 in adult; CKD (chronic kidney disease) stage 2, GFR 60-89 ml/min; Mild episode of recurrent major depressive disorder 04/17/2024 10:30 AM EST - 04/17/2024 11:59 PM EST Hospital Encounter [facility] [address] [place] [address] Francisca Murray, CINDY Discharge Disposition: Home or Self Care 03/24/2024 1:40 PM EST Office Visit [facility] [address] [place] [address] Amita Roy CNP Swelling of right hand (Primary Dx); Stiffness of finger joint of right hand from Last 3 Months Immunizations Name Administration Dates Next Due COVID-19 (Pre-01/15) Pfizer Vaccine, mRNA, PF 04/06/2020,03/16/2020 Influenza Quadrivalent MDCK Preservative Free IM 01/31/2022 Influenza Quadrivalent Prese rvative Free IM 12/25/2022,12/19/2020,12/19/2018,2017 Influenza Quadrivalent w/ Preservative IM 01/05/2017 Influenza Recombinant Renzo valent Preservative Free IM 01/26/2020 Influenza Trivalent Preserva tive Free IM 01/21/2024,01/26/2020,01/21/2018 Pneumococcal conjugate PCV20 04/21/2024 RSV Vaccine (monovalent, adjuvanted) 01/25/2023 Td (adult),2 Lf Tetanus Toxo id, PF, Adsorbed 05/08/2003 Tdap 01/25/2023,12/18/2012 Zoster recombinant 04/07/2019,01/18/2019 Family History Medical History Relation Comments Valvular heart disease Father s/p valve replacement ?endocarditis when living in [facility] Alzheimer's disease Maternal Grandfather Heart disease Maternal Grandmother Anxiety disorder Mother Breast cancer Neg Hx Colon cancer Neg Hx Relation Status Comments Father Alive Maternal Grandfather (Age 83) Maternal Grandmother (Age 54) Mother Alive Paternal Grandfather (Age 79) Paternal Grandmother (Age 87) Sister Alive Son 1 Alive Son 2 Alive Social History Tobacco Use Types Packs/Day Years Used Date Smoking Tobacco: Former Cigarettes 2 13 0 06/01/1975 - 05/31/1988 Smokeless Tobacco: Never Tobacco Cessation:Counseling Given: Not Answered Alcohol Use Standard Drinks/Week Comments No 0 [...] high school, GED, job training, learning the [place]ic language, technical skills, or developing parenting skills)? [...] your housing situation today? I have viktor sing 04/21/2024 How many times have you move [...] Orientation Straight 08/22/2019 11 :44 AM EDT Last Filed Vital Signs Vital Sign Reading Time Taken Comments Blood Pressure 134/82 04/21/2024 10:42 AM EST Pulse 81 04/21/2024 10:42 AM EST Temperature 36.2 ??C (97.1 ??F) 04/21/2024 10:[address] Respiratory Rate 20 03/24/2024 2:38 PM EST Oxygen Saturation 97% 04/21/2024 10:42 AM EST Inhaled Oxygen Concentration - - Weight 130.2 kg (287 lb) 04/21/2024 10:42 AM EST Height 182.3 cm (5' 11.77 ) 04/21/2024 10:42 AM EST Body Mass Index 39.17 04/21/2024 10:42 AM EST Plan of Treatment Health Maintenance Due Date Last Done Comments HEPATITIS B SCREENING 1978 COLOGUARD 2005 FIT TEST 2005 FOBT 2005 SIGMOIDOSCOPY 2005 VIRTUAL COLONOSCOPY 2005 COLONOSCOPY 09/02/2022 09/02/2012 COLORECTAL CANCER SCREENING 09/02/2022 BLOOD PRESSURE 10/19/2024 04/21/2024 CREATININE LEVEL 04/17/2025 04/17/2024, 08/2022, 09/28/2020, Additional history exists POTASSIUM LEVEL 04/17/2025 04/17/2024, 1208/2022, 09/28/2020, Additional history exists DEPRESSION SCREENING 04/21/2025 04/21/2024 SCREENING FOR DIABETES 04/17/2027 04/17/2024, 2022 LIPID PANEL 04/17/2029 04/17/2024, 12/08/2022, 09/28/2020, Additional history exists Adult Td,Tdap Booster 01/25/2033 01/25/2023 , 12/18/2012, 05/08/2003 ZOSTER VACCINES Completed 04/07/2019, 01/18/2019 RSV VACCINE Completed 01/25/2023 COVID-19 VACCINE Completed 01/21/2024, 04/2022, 01/31/2022, Additional history exists INFLUENZA VACCINE Completed 01/21/2024, , 01/31/2022, Additional history exists HEPATITIS C SCREENING Completed 04/17/2024 HIV ONE-TIME SCREENING (18-65 YEARS) Completed 04/17/2024 PNEUMOCOCCAL VACCINES (50+ years) Completed 04/21/2024 SMOKING STATUS SCREENING (Once After 26 Yrs) Completed 04/22/2024 HEPATITIS A VACCINES Aged Out No long er eligible based on patient's age to complete this topic HEPATITIS B VACCINES Aged Out No long er eligible based on patient's age to complete this topic HIB VACCINES Aged Out No longer eligi ble based on patient's age to complete this topic MENINGOCOCCAL VACCINES (ACWY) Aged Out No longer eligible based on patient's age to complete this topic Medical Devices Not on file Procedures Procedure Name Priority Date/Time Associated Diagnosis Comments URINALYSIS W/REFLEX URINE CULTURE Routine 04/17/2024 10:41 AM EST Urgency of urination MICROALBUMIN/CREATININ E RATIO, RANDOM URINE Routine 04/17/2024 10:41 AM EST CKD (chronic kidney disease) stage 2, GFR 60-89 ml/min FREE T4 Routine 04/17/2024 10:29 AM EST PSA, FREE AND TOTAL Routine 04/17/2024 1 0:29 AM EST Urgency of urination LIPID PANEL Routine 04/17/2024 10:29 AM EST Mixed hyperlipidemia THYROPEROXIDASE (TPO) ANTIBODIES Routine 04/17/2024 10:29 AM EST Subclinical hypothyroidism TSH WITH REFLEX Routine 04/17/2024 10:29 AM EST Subclinical hypothyroidism COMPREHENSIVE METABOLIC PANEL Routine 04/17/2024 10:29 AM EST Mixed hyperlipidemia Prediabetes CKD (chronic kidney disease) stage 2, GFR 60-89 ml/min HEPATITIS C ANTIBODY, QUALITATIVE Routine 04/17/2024 10:29 AM EST Need for hepatitis C screening test HIV-1/2 ANTIGEN/ANTIBODY Routine 04/17/2024 10:29 AM EST Screening for human immunodeficiency virus HM COLONOSCOPY FOR RESULT ENTRY ONLY Routine 09/02/2012 from Last 3 Months or Most Recently Relevant to Health Maintenance Results * (ABNORMAL) Urinalysis w/reflex Urine Culture (04/17/2024 10:41 AM EST) COLOR Yellow Yellow [facility] CLARITY Clear [facility] GLUCOSE Negative Negative [facility] BILI Negative Negative [facility] KETONES Negative Negative [facility] SPECIFIC GRAVITY >1.030 1.005 - 1.030 [facility] BLOOD Negative Negative [facility] PH 5.5 5.0 - 8.0 [facility] Protein-UA Trace(A) Negative [facility] NITRITE Negative Negative [facility] Leukocyte esterase, ur Negative Negative [facility] Urine (Urine) 04/17/2024 10: 41 AM EST 04/17/2024 10:43 AM EST Francisca Murray [facility] URINE ORDERA BLES [facility] [address] [place] [address] * (ABNORMAL) Microalbumin/creatinine ratio, random urine (04/17/2024 10:41 AM EST) URINE MICROALBUMIN 3.0(H) 0 - 2.3 mg/dL [facility] URINE CREATININE 246 mg/dL [facility] MICROALB/CRE RATIO 12.2 0 - 20 mg/g Cre [facility] Urine (Urine) 04/17/2024 10: 41 AM EST 04/17/2024 10:43 AM EST Francisca Murray CNP URINE ORDERA BLES Performing Organization Address City/[facility] Co de Phone Number [facility] [address] [place] [address] * PSA, free and total (04/17/2024 10:29 AM EST) PSA, TOTAL 1.5 <=4.5 ng/mL [facility] FREE PSA 0.4 ng/mL [facility] FREE/TOT PSA RATIO SEE NOTE ratio [facility] [place] Comment: (NOTE) Ratio not calculated because clinical usefulness is not ?? defined except in range of total PSA 4.0-10.0 ng/mL. ADDITIONAL INFORMATION The testing method is an electrochemiluminescence assay manufactured by [employer] and performed on the Modular or Renate system. Values obtained with different assay methods or kits may be different and cannot be used interchangeably. Test results cannot be interpreted as absolute evidence for the presence or absence of malignant disease. Blood 04/17/2024 10:2 9 AM EST 04/17/2024 10:35 AM EST Francisca Murray CNP LAB BLOOD OR DERABLES Performing Organization Address City/[facility]/ZIP Co de Phone Number [facility] [place] [address] [place] [address] * (ABNORMAL) Comprehensive metabolic panel (04/17/2024 10:29 AM EST) SODIUM 141 133 - 146 mmol/L [facility] POTASSIUM 4.1 3.3 - 5.1 mmol/L [facility] CHLORIDE 105 96 - 108 mmol/L [facility] CO2 25 21 - 35 mmol/L [facility] BUN 15 6 - 19 mg/dL [facility] CREATININE 1.20 0.5 - 1.5 mg/dL [facility] GLUCOSE 104(H) 70 - 99 mg/dL [facility] ALBUMIN 4.3 3.9 - 4.8 g/dL [facility] TOTAL PROTEIN 7.3 6.5 - 8.0 g/dL [facility] CALCIUM 9.3 8.4 - 10.3 mg/dL [facility] ALKALINE PHOSPHATASE 96 39 - 117 U/L [facility] TOTAL BILIRUBIN 0.4 0.0 - 1.2 mg/dL [facility] AST 30 0 - 37 U/L [facility] ALT 23 0 - 40 U/L [facility] GLOBULIN 3.0 1 - 4.8 g/dL [facility] EGFR 68 >59 mL/min/1.7 3m2 [facility] Comment:Estimated glomerular filtration rate calculated using the CKD-EPI refit equation. ANION GAP 15 10 - 20 mmol/L [facility] Blood 04/17/2024 10:2 9 AM EST 04/17/2024 10:35 AM EST Francisca [facility] LAB BLOOD OR DERABLES [address] [address] * HIV-1/2 antigen/antibody (04/17/2024 10:29 AM EST) HIV-1/2 Antigen/Antibo dy NON-REACTI VE NON-REACTI VE [facility] Blood 04/17/2024 10:2 9 AM EST 04/17/2024 10:35 AM EST [facility] LAB BLOOD OR DERABLES [address] [address] * (ABNORMAL) TSH with reflex (04/17/2024 10:29 AM EST) TSH 4.41(H) 0.27 - 4.20 uIU/mL [facility] Blood 04/17/2024 10:2 9 AM EST 04/17/2024 10:35 AM EST Francisca Murray [facility] LAB BLOOD OR DERABLES Performing Organization Address City/[facility]/ZIP Co de Phone Number [address] [address] * Hepatitis C antibody, qualitative (04/17/2024 10:29 AM EST) HCV NON-REACTIV E NON-REACTI VE [facility] Blood 04/17/2024 10:2 9 AM EST 04/17/2024 10:35 AM EST Francisca Shinegiuliana [facility] LAB BLOOD OR DERABLES Performing Organization Address [facility] Co de Phone Number [address] [address] * Thyroperoxidase (TPO) antibodies (04/17/2024 10:29 AM EST) THYROPEROXIDASE AB, S <0.3 <9.0 IU/mL [facility] Blood 04/17/2024 10:2 9 AM EST 04/17/2024 10:35 AM EST Francisca Murray [facility] LAB BLOOD OR DERABLES Performing Organization Address City/[facility]/ZIP Co de Phone Number [facility] [address] [place] [address] * Free T4 (04/17/2024 10:29 AM EST) FREE T4 1.3 0.9 - 1.7 ng/dL [facility] 04/17/2024 10:2 9 AM EST 04/17/2024 10:35 AM EST Francisca Shinegiuliana [facility] LAB BLOOD OR DERABLES Performing Organization Address City/[facility]/ZIP Co de Phone Number [address] [address] * (ABNORMAL) Lipid panel (04/17/2024 10:29 AM EST) HDL 30 mg/dL [facility] Comment: ? Interpretation <40 mg/dL: Low HDL cholesterol (major risk factor for CHD) Greater than or equal to 60 mg/dL: High HDL cholesterol ( negative risk factor for CHD) HDL - cholesterol is affected by a number of factors, e.g. smoking, excerise, hormones, sex and age. CHOLESTEROL 231 0 - 240 mg/dL [facility] TRIGLYCERIDES 154 30 - 160 mg/dL [facility] LDL 170(H) 50 - 129 mg/dL [facility] Comment: LDL levels in terms of risk for coronary heart disease: <100 mg/dL: Optimal 100-129 mg/dL: Near or above optimal 130-159 mg/dL: Borderline high 160-189 mg/dL: High >190 mg/dL: Very High CARDIAC RISK RATIO 7.7(H) 3.4 - 5.0 [facility] Blood 04/17/2024 10:2 9 AM EST 04/17/2024 10:36 AM EST Francisca Murray [employer] LAB BLOOD OR DERABLES [facility] [address] [place] [address] * COLONOSCOPY FOR RESULT ENTRY ONLY (09/02/2012) HM Colonoscopy hyperplastic Historical Provider MD MOHAN Marti from Last 3 Months or Most Recently Relevant to Health Maintenance Care Teams Steam Plant Records Clerk Relationship Specialty Start Date End Date Francisca Murray CNP [address] [place] [address], [address] [place] [address] [email or web address] PCP - General Family Medicine 10/15/23 Additional Source Comments The information contained in this document represents components of the legal health record. It is not the complete legal health record.[facility]
[2024-05-28 15:17] VITALS: BMI 37.6
--- NOTE | 2024-05-29 08:51 | HO.ANESPROP2 ---
HPI - Anesthesia Eval Consult details Narrative: 63yo M for Colonoscopy PMFSH Active Problems Active Problems: All Active Problems Trigger finger, right middle finger (Acute) Varus deformity, not elsewhere classified, left knee (Acute) Varus deformity of left tibia (Acute) Osteoarthritis of left knee (Acute) Past Medical History Medical History (Updated 05/28/24 @ 15:17 by Kelly Lima RN) Hyperlipidemia Anxiety Diabetes HTN (hypertension) Surgical History Surgical History (Updated 05/28/24 @ 15:17 by Kelly Lima RN) H/O colonoscopy Hx of tonsillectomy H/O toe surgery Social History Social History (Updated 05/28/24 @ 15:18 by Kelly Lima RN) Household Members: Spouse Patient Tobacco Use Status: Never used Tobacco Current occupational status: employed Current occupation: [employer] program- [employer] Allergies Allergy/AdvReac Type Severity Reaction Status Date / Time amoxicillin [From Augmentin] Allergy Severe ANAPHYLAXIS Unverified 04/04/24 14:13 Penicillins Allergy Unknown Unknown Verified 05/28/24 15:16 From Augmentin Allergy Severe ANAPHYLAXIS Uncoded 04/04/24 14:13 Home Medications ?Medication ?Instructions ?Recorded ?Confirmed ?Last Taken ?Type escitalopram oxalate 20 mg tablet 20 mg PO DAILY 02/15/24 05/28/24 Unknown History metformin 1,000 mg tablet 1,000 mg PO DAILY 02/15/24 05/28/24 Unknown History valsartan 160 mg tablet 160 mg PO DAILY 02/15/24 05/28/24 Unknown History aspirin 81 mg tablet,delayed 81 mg PO DAILY 05/28/24 05/28/24 Unknown History release cetirizine 10 mg tablet (Zyrtec) 10 mg PO DAILY 05/28/24 05/28/24 Unknown History epinephrine 0.3 mg/0.3 mL 0.3 mg IM ONCE PRN anaphylaxis 05/28/24 05/28/24 Unknown History injection, auto-injector multivitamin 1 tab PO DAILY 05/28/24 05/28/24 Unknown History rosuvastatin 10 mg tablet 10 mg PO BEDTIME 05/28/24 05/28/24 Unknown History Exam Height,Weight and Vital Signs: Height 6 ft 1 in Weight 129.274 kg Assessment and Plan Assessment Anesthesia Assessment: Chart Reviewed
[2024-05-30 12:05] VITALS: BMI 37.1
[2024-05-30] MEDS: Lactated Ringers 1,000 ML 100 ML IVCONT (12:25)
[2024-05-30 12:37] VITALS: BP 147/92; PULSE 65; RESP 18; TEMP 36.6; O2SAT 96
[2024-05-30 12:39] LABS: Glucose, Whole Blood 99 mg/dL (60-115)
[2024-05-30 12:49] VITALS: BMI 37.1
--- NOTE | 2024-05-30 12:54 | ECG_ITS ---
Test Reason : pre op Blood Pressure : */* mmHG Vent. Rate : 59 BPM Atrial Rate : 59 BPM P-R Int : 200 ms QRS Dur : 92 ms QT Int : 420 ms P-R-T Axes : 33 50 -75 degrees QTcB Int : 415 ms Sinus bradycardia Nonspecific T wave abnormality Abnormal ECG When compared with ECG of 25-May-2008 14:15, Nonspecific T wave abnormality now evident in Lateral leads Referred By: Mandy Alaniz Electronically Signed By: CONY GODWIN MD
--- NOTE | 2024-05-30 13:31 | PC.NURSE ---
Dr. Castillo reviewed EKG and stated ok to proceed. Dr. Jimenez updated that patient did not stop his ASA 81 mg for one week as stated in H&P. OK to proceed per Dr. Jimenez.
--- NOTE | 2024-05-30 13:48 | P.CONAN_ITS ---
[facility] Active Problems Active Problems: All Active Problems Trigger finger, right middle finger (Acute) Varus deformity, not elsewhere classified, left knee (Acute) Varus deformity of left tibia (Acute) Osteoarthritis of left knee (Acute) Past Medical History Medical History Hyperlipidemia Anxiety Diabetes HTN (hypertension) Functional capacity: independent ambulation Family History Family history of problems with anesthesia: No Surgical History Surgical History H/O colonoscopy Hx of tonsillectomy H/O toe surgery History of Problems with Anesthesia: No Social History Social History Household Members: Spouse Patient Tobacco Use Status: Former Tobacco user Use of substances other than those prescribed or required for medical reasons: Yes Are you DNR?: No Advance Directives: No Advance Directives Information Provided: Yes Recently lost weight without trying: No Nutrition Risks: No Nutritional Risk Poor oral hygiene: No Current occupational status: employed Current occupation: [employer] program- [employer] Allergies Allergy/AdvReac Type Severity Reaction Status Date / Time amoxicillin [From Augmentin] Allergy Severe ANAPHYLAXIS Verified 05/30/24 12:38 Penicillins Allergy Severe Anaphylaxis Verified 05/30/24 12:38 From Augmentin Allergy Severe ANAPHYLAXIS Uncoded 05/30/24 12:38 Active Medications: Current Medications Lactated Ringer's (Lr) 1,000 mls @ 100 mls/hr IVCONT .Q10H ISSA Last Admin: 05/30/24 12:25 Dose: 100 mls/hr Sodium Biphosphate/Sodium Phosphate (Sodium Phosphate,Charles [place]-Dibasic 133 Ml Enema) 133 ml AR ONCE PRN PRN Reason: Poor Colonoscopy Prep Results Home Medications ?Medication ?Instructions ?Recorded ?Confirmed ?Last Taken ?Type escitalopram oxalate 20 mg tablet 20 mg PO DAILY 02/15/24 05/28/24 05/30/24 History metformin 1,000 mg tablet 1,000 mg PO DAILY 02/15/24 05/28/24 Unknown History valsartan 160 mg tablet 160 mg PO DAILY 02/15/24 05/28/24 05/30/24 History aspirin 81 mg tablet,delayed 81 mg PO DAILY 05/28/24 05/28/24 05/28/24 History release cetirizine 10 mg tablet (Zyrtec) 10 mg PO DAILY 05/28/24 05/28/24 Unknown History epinephrine 0.3 mg/0.3 mL 0.3 mg IM ONCE PRN anaphylaxis 05/28/24 05/28/24 Unknown History injection, auto-injector multivitamin 1 tab PO DAILY 05/28/24 05/28/24 Unknown History rosuvastatin 10 mg tablet 10 mg PO BEDTIME 05/28/24 05/28/24 Unknown History Exam Height,Weight and Vital Signs: Height 6 ft 1 in Weight 127.4 kg Last Vital Signs Temp 97.9 F 05/30/24 12:37 Pulse 65 05/30/24 12:37 Resp 18 05/30/24 12:37 BP 147/92 H 05/30/24 12:37 Pulse Ox 96 05/30/24 12:37 O2 Del Method Room Air 05/30/24 12:37 Pertinent Lab Results Pertinent Lab Results: Laboratory Tests 05/30/24 12:24 POC Glucose 99 Airway Mallampati Class: IV TM Dist: >3cm Neck ROM: Full Heart: RRR Lungs: CTA Assessment and Plan Assessment Anesthesia Assessment: Anesthesia Plan Discussed and Chart Reviewed Final Anesthetic Review Family History of Problems with Anesthesia: No History of Problems with Anesthesia: No NPO: Yes ASA Class: III Final Preanesthetic Review: Meds/Allgs Chart Reviewed, Consent Obtained/Reviewed and Anes Risks/Benef Reviewed Patient Risk: Intermediate Procedure Risk: Low Anesthetic Plan Anesthetic Plan: MAC: Disposition: Standard PACU
--- NOTE | 2024-05-30 15:03 | P.CONAN_ITS ---
[facility] Active Problems Active Problems: All Active Problems Trigger finger, right middle finger (Acute) Varus deformity, not elsewhere classified, left knee (Acute) Varus deformity of left tibia (Acute) Osteoarthritis of left knee (Acute) Past Medical History Medical History Hyperlipidemia Anxiety Diabetes HTN (hypertension) Functional capacity: independent ambulation Family History Family history of problems with anesthesia: No Surgical History Surgical History H/O colonoscopy Hx of tonsillectomy H/O toe surgery History of Problems with Anesthesia: No Social History Social History Household Members: Spouse Patient Tobacco Use Status: Former Tobacco user Use of substances other than those prescribed or required for medical reasons: Yes Are you DNR?: No Advance Directives: No Advance Directives Information Provided: Yes Recently lost weight without trying: No Nutrition Risks: No Nutritional Risk Poor oral hygiene: No Current occupational status: employed Current occupation: [employer] program- [employer] Allergies Allergy/AdvReac Type Severity Reaction Status Date / Time amoxicillin [From Augmentin] Allergy Severe ANAPHYLAXIS Verified 05/30/24 12:38 Penicillins Allergy Severe Anaphylaxis Verified 05/30/24 12:38 From Augmentin Allergy Severe ANAPHYLAXIS Uncoded 05/30/24 12:38 Active Medications: Current Medications Lactated Ringer's (Lr) 1,000 mls @ 100 mls/hr IVCONT .Q10H ISSA Last Admin: 05/30/24 12:25 Dose: 100 mls/hr Sodium Biphosphate/Sodium Phosphate (Sodium Phosphate,[place]-Dibasic 133 Ml Enema) 133 ml OK ONCE PRN PRN Reason: Poor Colonoscopy Prep Results Home Medications ?Medication ?Instructions ?Recorded ?Confirmed ?Last Taken ?Type escitalopram oxalate 20 mg tablet 20 mg PO DAILY 02/15/24 05/28/24 05/30/24 History metformin 1,000 mg tablet 1,000 mg PO DAILY 02/15/24 05/28/24 Unknown History valsartan 160 mg tablet 160 mg PO DAILY 02/15/24 05/28/24 05/30/24 History aspirin 81 mg tablet,delayed 81 mg PO DAILY 05/28/24 05/28/24 05/28/24 History release cetirizine 10 mg tablet (Zyrtec) 10 mg PO DAILY 05/28/24 05/28/24 Unknown History epinephrine 0.3 mg/0.3 mL 0.3 mg IM ONCE PRN anaphylaxis 05/28/24 05/28/24 Unknown History injection, auto-injector multivitamin 1 tab PO DAILY 05/28/24 05/28/24 Unknown History rosuvastatin 10 mg tablet 10 mg PO BEDTIME 05/28/24 05/28/24 Unknown History Exam Height,Weight and Vital Signs: Height 6 ft 1 in Weight 127.4 kg Last Vital Signs Temp 97.9 F 05/30/24 12:37 Pulse 65 05/30/24 12:37 Resp 18 05/30/24 12:37 BP 147/92 H 05/30/24 12:37 Pulse Ox 96 05/30/24 12:37 O2 Del Method Room Air 05/30/24 12:37 Pertinent Lab Results Pertinent Lab Results: Laboratory Tests 05/30/24 12:24 POC Glucose 99 Airway Mallampati Class: IV TM Dist: >3cm Neck ROM: Full Heart: RRR Lungs: CTA Assessment and Plan Assessment Anesthesia Assessment: Anesthesia Plan Discussed and Chart Reviewed Final Anesthetic Review Family History of Problems with Anesthesia: No History of Problems with Anesthesia: No NPO: Yes ASA Class: III Final Preanesthetic Review: Meds/Allgs Chart Reviewed, Consent Obtained/Reviewed and Anes Risks/Benef Reviewed Patient Risk: Intermediate Procedure Risk: Low Anesthetic Plan Anesthetic Plan: MAC: Disposition: Standard PACU
[2024-05-30 15:38] VITALS: BP 114/69; PULSE 53; RESP 16; TEMP 36.1; O2SAT 95
--- NOTE | 2024-05-30 15:41 | HO.POSTANES ---
Post Anesthesia Evaluation Post Anesthesia Evaluation Date of Service: 05/30/24 Vital Signs: Vital Signs Temp Pulse Resp BP Pulse Ox O2 Del Method 05/30/24 15:38 97.0 F 53 16 114/69 95 Room Air 05/30/24 12:37 97.9 F 65 18 147/92 H 96 Room Air Anesthesia: Monitored Mental Status: Awake Pain Control: Satisfactory Nausea/Vomiting: None Hydration: Adequate Anesthesia-Related Issues: No Anes. Related Issues
--- NOTE | 2024-05-30 15:48 | PM.OP ---
Brief Operative Note Date of Service: 05/30/24 Pre-op diagnosis: Screening Post-op diagnosis: other (Colon polyp) Procedure: Colonoscopy to the cecum and TI with cold snare polypectomy x 1 Surgeon: Yordan Jimenez MD Anesthesia: MAC Was an Outgoing Inspector used for this Procedure?: No Estimated blood loss (mL): 2.0 Pathology: other (A. Proximal ascending colon polyp) Condition: stable Disposition: PACU
[2024-05-30 16:08] VITALS: BP 123/81; PULSE 55; RESP 18; TEMP 36.8; O2SAT 96
--- NOTE | 2024-05-30 22:15 | OP_ITS ---
DATE OF SERVICE: 05/30/2024 SURGEON: Yordan Jimenez MD INDICATIONS: The patient presents for evaluation of colorectal cancer screening. Full consent has been obtained from him for this, including risks of bleeding and perforation. PREOPERATIVE DIAGNOSIS: Colorectal cancer screening. POSTOPERATIVE DIAGNOSIS: PROCEDURE PERFORMED: Colonoscopy to cecum and terminal ileum with cold snare polypectomy x1. ESTIMATED BLOOD LOSS: COMPLICATIONS: ANESTHESIA: Medication used; monitored anesthesia care. ASSISTANTS: SPECIMENS: POSTOPERATIVE DIAGNOSES: Colorectal cancer screening, colon polyp, diverticulosis, and internal hemorrhoids. DESCRIPTION OF PROCEDURE: The patient was placed in left lateral decubitus position. The digital rectal exam revealed no abnormalities. The Olympus videopediatric colonoscope was entered into the rectum and advanced easily to the cecum. Once in the cecum, I did identify normal-appearing cecal pouch with appendiceal orifice and a normal-appearing ileocecal valve. The terminal ileum was cannulated and appeared normal. The scope was withdrawn back in the colon. The entire cecum and ileocecal valve appeared normal. The scope was slowly withdrawn assessing all mucosal surfaces carefully. Preparation was very good throughout the colon after some irrigation and suctioning. The very proximal ascending colon was an approximately 4 or 5 mm polyp, which was removed by cold snare polypectomy and recovered by suction. The polypectomy site appeared clean, without any sign of residual polyp nor significant bleeding. I did not visualize any other polyps, colitis, nor angiodysplasia. There was a mild amount of sigmoid diverticulosis and descending colon diverticulosis. In the rectum, scope was retroflexed visualizing internal hemorrhoids, but no other pathology. The rectal mucosa appeared normal. Scope was straightened and withdrawn from the patient. He tolerated the procedure well and was returned to recovery area in stable condition. IMPRESSION: 1. Colon polyp. 2. Diverticulosis. 3. Internal hemorrhoids. PLAN: The results of the pathology will be checked. If this is a tubular adenoma, I would recommend a followup coloscopy in 5 years. If it is only hyperplastic, I would recommend a followup coloscopy in 10 years. He was advised not to use any aspirin or NSAIDs for 1 week. This has been discussed with his . MD SAURABH Camp/AMY / [phone]
== END 2024-05-30 16:20 | disposition home or self-care (01) ==
PROVIDERS: Visit Provider Internal Medicine
PROC: 0DJD8ZZ Inspection of Lower Intestinal Tract, Via Natural or Artificial Opening Endoscopic (ICD-10-PCS; CPT 45378; principal; 2024-05-30 13:30)
DX: Z12.11 Encounter for screening for malignant neoplasm of colon (principal); K51.40 Inflammatory polyps of colon without complications; K57.30 Diverticulosis of large intestine without perforation or abscess without bleeding; K64.8 Other hemorrhoids; I10 Essential (primary) hypertension; E11.9 Type 2 diabetes mellitus without complications; E78.5 Hyperlipidemia, unspecified; F41.9 Anxiety disorder, unspecified; Z79.82 Long term (current) use of aspirin; Z79.84 Long term (current) use of oral hypoglycemic drugs; Z79.899 Other long term (current) drug therapy; Z88.0 Allergy status to penicillin; Z88.1 Allergy status to other antibiotic agents
CPT/HCPCS: 45385; 82947; 88305; 93005; J2003; J2704

== ENCOUNTER → 2024-05-30 12:54 | Outpatient (BNV) | payer OTHER, SELFPAY | PROVIDERS: Visit Provider Internal Medicine Cardiovascular Disease | DX: R00.1 Bradycardia, unspecified (principal); R94.31 Abnormal electrocardiogram [ECG] [EKG] | CPT/HCPCS: 93010 ==

== ENCOUNTER 2024-06-12 11:07 | Outpatient (AMB) | payer OTHER, SELFPAY ==
--- NOTE | 2024-06-12 11:34 | A.OFFVIS_ITS ---
Vital Signs 06/12/24 11:40 Height 6 ft Weight 280 lb BMI 38.0 Intake Visit Reasons: ov- discuss LT TKA Intake Note: Jesus is a 63 year old male who presents today for a follow up of his Left Knee OA. Today he would like to discuss Left TKA. He was previously ordered Custom Medial Unloading brace, but he never received this. He has no history of injections in the knee. Patient reports that he is not having much pain. He has noticed gait changes. Pain is mostly felt upon standing after long periods of sitting. He is active in skiing but does not have pain afterwards. Allergies amoxicillin [From Augmentin] Allergy (Severe, Verified 06/16/24 09:07) ANAPHYLAXIS Penicillins Allergy (Severe, Verified 06/16/24 09:07) Anaphylaxis From Augmentin Allergy (Severe, Uncoded 06/16/24 09:07) ANAPHYLAXIS HPI HPI ov- discuss LT TKA: Details: Jesus is a 63 year old male who presents today for a follow up of his Left Knee OA. Today he would like to discuss Left TKA. He was previously ordered Custom Medial Unloading brace, but he never received this. He has no history of injections in the knee. Patient reports that he is not having much pain. He has noticed gait changes. Pain is mostly felt upon standing after long periods of sitting. He is active in skiing and hiking but does not have pain afterwards. [facility] Medical History Hyperlipidemia Anxiety Diabetes HTN (hypertension) Surgical History H/O colonoscopy Hx of tonsillectomy H/O toe surgery Social History Household Members: Spouse Patient Tobacco Use Status: Former Tobacco user Current occupational status: employed Current occupation: [employer] program[place] [employer] [place] Physical Exam Vital Signs: BMI result Body Mass Index 38.0 Const General: cooperative and no acute distress Orientation/consciousness: patient oriented x3 Resp Effort & Inspection: normal respiratory effort and able to speak in complete sentences Cardio Peripheral pulses: Peripheral pulses 2+ throughout Neuro General: patient oriented x3 Extrem Other: Left knee skin intact, no erythema or joint effusion. Mild tenderness along the medial joint line. ROM full with crepitus. Negative steinmans. Mild laxity with varus stress testing. NVI. Results Reviewed Results Reviewed: X-rays of the left knee obtained in the office today show significant degenerative arthritis with osteophyte formation. Assessment & Plan Assessment & Plan (1) Osteoarthritis of left knee: Code(s): M17.12 - Unilateral primary osteoarthritis, left knee Category: Medical Qualifiers: Osteoarthritis type: primary Qualified Code(s): M17.12 - Unilateral primary osteoarthritis, left knee Plan: Left knee OA in an active 63 yo. He is not suffering and is not in dire need of replacement. I had a long discussion regarding treatment options. Injections may continue to benefit him but his motion and alignment will be limiting. Will return to see me if pain worsens. No injtervention currently warranted. Coding Level of Care Code Est Pt Level 3 (14351) Diagnoses Primary osteoarthritis of left knee M17.12 Osteoarthritis type: primary
[2024-06-12 11:40] VITALS: BMI 38.0
== END 2024-06-12 12:25 | disposition home or self-care (01) ==
LOC: HO.HOS 11:08
PROVIDERS: Visit Provider Orthopaedic Surgery
DX: M17.12 Unilateral primary osteoarthritis, left knee (principal)
CPT/HCPCS: 99213

== ENCOUNTER 2024-06-16 09:00 | Outpatient (AMB) | payer OTHER, SELFPAY ==
--- NOTE | 2024-06-16 09:01 | MHC.OFFVIS ---
Vital Signs 06/16/24 09:07 Height 6 ft Weight 280 lb BMI 38.0 Intake Visit Reasons: OV- Trigger finger, RT middle finger f/u Intake Note: Jesus is a 63 year old right hand dominant male who presents today for a follow up of his trigger finger, right ring finger. Patient received a right ring finger injection on 04/04/24 and reports the injection did not provide relief. Patient wishes to discuss trigger release today. Allergies amoxicillin [From Augmentin] Allergy (Severe, Verified 06/16/24 09:07) ANAPHYLAXIS Penicillins Allergy (Severe, Verified 06/16/24 09:07) Anaphylaxis From Augmentin Allergy (Severe, Uncoded 06/16/24 09:07) ANAPHYLAXIS HPI HPI OV- Trigger finger, RT middle finger f/u: Details: Jesus is a 63 year old right hand dominant male who presents today for a follow up of his trigger finger, right ring finger. Patient received a right ring finger injection on 04/04/24 and reports the injection did not provide relief. Patient wishes to discuss trigger release today. No other acute complaints or concerns at this time. 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 Neuro: Normal sensation of the tips of all digits of the right hand at this time Vascular: Cap refill brisk Pain: Tenderness to palpation at the level of the A1 niecy of the right ring finger Pain associated with visible and palpable locking and catching ROM: There is a visible and palpable locking and catching of the right ring finger went in a flexed position Patient is able to flex and extend all other digits of the right hand fully and without difficulty Skin: No lacerations or abrasions. General: No ecchymosis, erythema, or evidence of infection. Psych: Appears grossly normal Affect normal Attitude cooperative Assessment & Plan Assessment & Plan (1) Trigger finger, right middle finger: Code(s): M65.331 - Trigger finger, right middle finger Category: Medical Plan 1. Trigger finger, right ring finger Status post trigger injection on 04/04/2024 with no relief I educated the patient about the condition. I discussed both operative and nonoperative treatment options. The patient would like to proceed with surgery. The risks and benefits of operative treatment were discussed with the patient and the patient wishes to proceed with surgery. These risks include, but are not limited to, risk of damage to blood vessels, nerves, tendons, infection, recurrence, incomplete relief of preoperative symptoms, persistent pain, possible need for further surgery, and the risks associated with regional blocks and/or anesthesia. Plan is to take the patient to the operating room at some point in the next few weeks for the following procedures: 1. Right ring finger trigger release under local All of the preoperative paperwork including the consent was discussed today. All of the patient's questions were answered in the clinic today. The patient understands that they will be in contact with our surgical instrument mechanic to discuss scheduling their procedure. Patient denies diabetes, blood thinners, asthma, heart issues, lung issues, kidney issues, or current smoking. Coding Level of Care Code Est Pt Level 4 (13145) Diagnoses Trigger finger, right middle finger M65.331
[2024-06-16 09:07] VITALS: BMI 38.0
== END 2024-06-16 09:19 | disposition home or self-care (01) ==
LOC: HO.HOS 09:00
DX: M65.331 Trigger finger, right middle finger (principal)
CPT/HCPCS: 99214

== ENCOUNTER 2024-07-07 08:50 | Day surgery (SDC) | payer OTHER, SELFPAY ==
[2024-07-07 09:55] VITALS: BP 155/84; PULSE 55; RESP 16; TEMP 36.3; O2SAT 95; BMI 38.1
--- NOTE | 2024-07-07 10:34 | MHC.SHP ---
Pre-Procedural Eval Section A - 24 Hr Update-Section A only Date of Service: 07/07/24 The patient is an INPATIENT: No Changes since office visit: No Cold of Flu in the past 2 weeks, No New Medical Problems, No Changes in Medication and No Patient answered all questions The patient has been examined within 24 hours of the surgical procedure. The History & Physical has been completed within 30 days and I have reviewed it.: Yes Section B - Complete if H&P > 30 days Chief Complaint: Trigger finger, right ring finger Allergies: Allergies Allergy/AdvReac Type Severity Reaction Status Date / Time amoxicillin [From Augmentin] Allergy Severe ANAPHYLAXIS Verified 07/07/24 09:57 Penicillins Allergy Severe Anaphylaxis Verified 07/07/24 09:57 From Augmentin Allergy Severe ANAPHYLAXIS Uncoded 06/16/24 09:07 Plan Diagnosis/Plan: Unchanged I have reviewed the history and physical and performed a pertinent physical examination on my patient. No changes have occurred unless specified. Time Spent With Patient Time: Total time managing care of this patient today ____ minutes.
--- NOTE | 2024-07-07 10:36 | W.PM.OPN ---
Operative Note Operative Note Date of Service: 07/07/24 Narrative: Operative Note Preop diagnosis: 1. Right ring finger Trigger finger Postop diagnosis: Same Procedure: 1. Right ring finger A1 niecy release Surgeon: Evelina Pacheco MD Pouch Making Machine Operator: None Anesthesia: local block using 1% lidocaine with epinephrine Findings: No locking or catching after A1 niecy release EBL: Less than 5 mL Tourniquet time: None Specimens: None Complications: None Disposition: Brought to recovery room in stable condition Plan: Follow-up for 10-14 days for wound check and suture removal Indications: The patient is 63 years old, with a right ring finger trigger finger that has been unresponsive to nonoperative management. The risks and benefits of operative treatment including but not limited to risk of damage to blood vessels, nerves, tendons, infection, persistent pain, persistent symptoms, recurrence or possible need for additional surgery were discussed with the patient and the patient wishes to proceed with surgery. Procedure: Once consent was obtained a local block was performed in the preop area using a combination of 1% lidocaine with epinephrine. The patient was then brought back to the operating suite and placed on the operative table in supine position. The right upper extremity was prepped and draped in a standard surgical fashion. Once assured that we had a good block, a 1.5 cm oblique incision was made centered over the A1 niecy of the right ring finger . The incision was made through the skin to the subcutaneous tissues using a #15 blade. Careful dissection was made down to the level of the A1 niecy using tenotomy scissors, with care being taken to protect the nearby neurovascular structures. A longitudinal incision was made in the A1 niecy 1st using a #15 blade, then using tenotomy scissors under direct visualization. The A1 niecy was noted to be thickened. Following our A1 niecy release, we no longer saw any locking or catching of the digit with flexion and extension. Once satisfied with our A1 niecy release the wound was copiously irrigated with normal saline and hemostasis was obtained with a brief period of local pressure. The skin edges were reapproximated with some 5.0 nylon suture material and a sterile dressing was applied. The patient appears to have tolerated the procedure well and with no complications. All digits were well vascularized at the conclusion of the case.
[2024-07-07 12:12] VITALS: BP 151/79; PULSE 54; RESP 20; O2SAT 95
== END 2024-07-07 12:14 | disposition home or self-care (01) ==
PROVIDERS: Visit Provider Orthopaedic Surgery
PROC: (CPT 26055; principal; 2024-07-07 10:20)
DX: M65.341 Trigger finger, right ring finger (principal); I10 Essential (primary) hypertension; E78.5 Hyperlipidemia, unspecified; E11.9 Type 2 diabetes mellitus without complications; F41.9 Anxiety disorder, unspecified; Z88.0 Allergy status to penicillin; Z88.1 Allergy status to other antibiotic agents; Z98.890 Other specified postprocedural states; Z87.891 Personal history of nicotine dependence
CPT/HCPCS: 26055; J0171; J2003

== ENCOUNTER → 2024-07-07 08:50 | Outpatient (BNV) | payer OTHER, SELFPAY | PROVIDERS: Visit Provider Orthopaedic Surgery | DX: M65.341 Trigger finger, right ring finger (principal) | CPT/HCPCS: 26055 ==

== ENCOUNTER 2024-07-21 14:34 | Outpatient (AMB) | payer OTHER, SELFPAY ==
--- NOTE | 2024-07-21 14:35 | A.OFFVIS_ITS ---
Vital Signs 07/21/24 14:36 Height 6 ft 1 in Weight 288 lb BMI 38.0 Intake Visit Reasons: PO-Rt RF Trigger 07/07/24 Intake Note: Jesus is a 63 year old right hand dominant male who presents today for a post operative visit s/p right ring finger A1 niecy release DOS: 07/07/[address] Evelina Pacheco. States he has pus drainage from his incision 2-3 days ago, called out office and P.Randi Hanna sent ABX. Currently states he he has no pain and his incision is looking a lot better today. Allergies amoxicillin [From Augmentin] Allergy (Severe, Verified 07/21/24 14:48) ANAPHYLAXIS Penicillins Allergy (Severe, Verified 07/21/24 14:48) Anaphylaxis From Augmentin Allergy (Severe, Uncoded 07/21/24 14:48) ANAPHYLAXIS HPI HPI PO-Rt RF Trigger 07/07/24: Details: Jesus is a 63 year old right hand dominant male who presents today for a post operative visit s/p right ring finger A1 niecy release DOS: 07/07/[address] Evelina Pacheco. States he has pus drainage from his incision 2-3 days ago, called out office and Edward.Randi Hanna sent ABX. Currently states he he has no pain and his incision is looking a lot better today. 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 Neuro: Normal sensation of the tips of all digits of the right hand at this time Vascular: Cap refill brisk Pain: No tenderness to palpation about incision site over A1 niecy of right middle finger No pain with range of motion right hand ROM: Patient is able to make a closed fist and extend all digits of the right hand fully and without difficulty Skin: Well approximated and well healing incision site noted over the A1 niecy of the right middle finger No erythema, ecchymosis, edema, drainage noted No lacerations or abrasions. General: No ecchymosis, erythema, or evidence of infection. Psych: Appears grossly normal Affect normal Attitude cooperative Assessment & Plan Assessment & Plan (1) Trigger finger, right middle finger: Code(s): M65.331 - Trigger finger, right middle finger Category: Medical Plan 1. Status post right middle finger trigger release DOS 07/07/2024 With complete symptom resolution postoperatively Patient appears to be recovering well postoperatively Patient is educated about the typical recovery course At this time, patient is educated he should finish his current course of antibiotics, but if he has no concerns after this will require no acute follow- up Patient was amenable to this plan Follow-up as needed Coding Level of Care Code Global (39305) Diagnoses Trigger finger, right middle finger M65.331
[2024-07-21 14:36] VITALS: BMI 38.0
--- OUTSIDE RECORDS SUMMARY | 2024-07-21 17:23 | XMS_ITS | Patient Health Record ---
Author Organization [facility] Address [address] [address] Care Team Providers Care Clutch Specialist Name Role Phone Nieves Larsen NP Primary Care Provider Louise Henderson Unavailable [phone] Allergies Allergen (clinical drug ingredient) Drug/Non Drug [...] 6 hrs for 10 day(s) 08/14/2018 Not-Taking [place] [facility] Active Clindamycin HCl 300 MG 1 [...] Problem Status W/U Status Risk Notes Problem 459907734 Non-pressure ulc er of left lower extremity, limited to breakdown of skin (L97.921) Active confirmed Problem 649382678 Hammer toe of ri ght foot (M20.41) Active confirmed Problem 087065320 Hammer toe of le ft foot (M20.42) Active confirmed Problem 733996446 Neuropathy (G62.9) Active confirmed Problem 99326608 Type 2 diabetes mellitus with polyneuropathy (E11.42) Active confirmed Problem 478833648 Non-pressure chronic ulcer left lower leg, 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
--- OUTSIDE RECORDS SUMMARY | 2024-07-21 17:23 | XMS_ITS | Encounter Summary ---
Author Organization [facility] Address [address] [place] [address] Phone Care Team Providers Care Wood Science Professor Name Role Phone Francisca Murray CNP Primary Care Provid er Reason for Visit * Reason Comments Medication Refill Encounter Details Date Type Department Care Team (Late st Contact Info) Description 07/16/2024 Refill [facility] [address] [place] [address] Francisca Murray, CINDY [address] [facility] [place] [address] [email or web address] Medication Refill Social History Tobacco Use Types [...] high school, GED, job training, learning the Persian language, technical skills, or developing parenting skills)? [...] AM EDT documented as of this encounter Plan of Treatment Not on file documented as of this encounter Visit Diagnoses Diagnosis Mixed hyperlipidemia documented in this encounter Additional Health Concerns Assessment Noted Time PHQ-2 Depression Total Score: 0 04/21/19 25 10:37 AM EST documented as of this encounter Care Teams Wood Science Professor Relationship Specialty Start Date End Date Francisca Murray CNP [address] [place] [address], [address] [place] [address] [email or web address] PCP - General Family Medicine 10/15/23 documented as of this encounter Additional Source Comments The information contained in this document represents components of the legal health record. It is not the complete legal health record.[facility]
== END 2024-07-21 14:53 | disposition home or self-care (01) ==
LOC: HO.HOS 14:35
DX: M65.331 Trigger finger, right middle finger (principal)
CPT/HCPCS: 99024